=== PATIENT | female | born 2005 ===

== ENCOUNTER 2025-03-21 08:38 | Emergency (ER) | payer OTHER, SELFPAY ==
--- NOTE | 2025-03-21 09:09 | XR_ITS ---
EXAMINATION: US gall bladder ORDERING PROVIDER: CONNER Lezama HISTORY: ruq pain TECHNIQUE: Multiplanar still ultrasonography of the right upper quadrant was performed using grayscale imaging, supplemented by color and spectral Doppler as needed. COMPARISON: None. FINDINGS: Liver: Within normal limits. Gallbladder: Within normal limits. Biliary system: No biliary ductal dilatation. Common bile duct: 0.4 cm. Pancreas: Partially evaluated. No pancreatic head mass visualized. Vascular: Normal hepatopetal flow in the portal vein. Other: No ascites or mass. IMPRESSION: 1.No sonographic findings for cholelithiasis or acute cholecystitis.
[2025-03-21 09:16] VITALS: BP 137/96; PULSE 99; RESP 18; TEMP 36.7; O2SAT 97; BMI 41.8
--- NOTE | 2025-03-21 09:17 | EDNOTE_ITS ---
ED Abdominal Pain RME/HPI General Chief Complaint: Abdominal Pain Stated complaint: ABD PAIN, N/V, DIARRHEA Time seen by provider: 03/21/25 08:59 Arrival date/time: 03/21/25 08:38 19-year-old female with no known medical history presents to the emergency room with a chief complaint of epigastric 7 out of 10 abdominal pain that radiates to the right upper quadrant, nausea, vomiting, diarrhea x 3 days Source: patient Mode of arrival: ambulatory Limitations: no limitations Related Data Previous Rx's ?Medication ?Instructions ?Recorded omeprazole 40 mg capsule,delayed 40 mg PO QDAY #20 cap s 03/21/25 release ondansetron 4 mg disintegrating 4 mg PO Q8H PRN nausea and 03/21/25 tablet vomiting #14 tabs Allergies Allergy/AdvReac Type Severity Reaction Status Date / Time No Known Allergies Allergy Verified 03/21/25 08:41 Review of Systems Review of Systems Systems Reviewed: All systems reviewed, normal except as documented Constitutional Constitutional: Reports system reviewed and no additional complaints, except as documented, Denies fatigue, Denies fever(s), Denies headache(s) and Denies weakness Eyes Eyes: Reports system reviewed and no additional complaints, except as documented, Denies blurry vision and Denies change in vision ENT Ears, Nose, Mouth, and Throat: Reports system reviewed and no additional complaints, except as documented, Denies otalgia, Denies headache(s), Denies nasal congestion, Denies throat swelling and Denies vertigo Cardiovascular Cardiovascular: Reports system reviewed and no additional complaints, except as documented, Denies chest pain, Denies dyspnea and Denies dyspnea on exertion Respiratory Respiratory: Reports system reviewed and no additional complaints, except as documented, Denies chest congestion, Denies cough, Denies dyspnea, Denies dyspnea on exertion and Denies wheezing Gastrointestinal Gastrointestinal: Reports system reviewed and no additional complaints, except as documented, Reports abdominal pain, Reports cramping, Reports heartburn, Reports nausea and Reports vomiting Genitourinary Genitourinary: Reports system reviewed and no additional complaints, except as documented Musculoskeletal Musculoskeletal: Reports system reviewed and no additional complaints, except as documented and Denies back pain Integumentary/Breasts Skin/Breast: Reports system reviewed and no additional complaints, except as documented and Denies wounds Neurologic Neurologic: Reports system reviewed and no additional complaints, except as documented, Denies confusion, Denies headache(s), Denies lack of coordination, Denies vertigo and Denies weakness Psychiatric Psychiatric: Reports system reviewed and no additional complaints, except as documented, Denies anxiety, Denies confusion, Denies depression, Denies paranoia, Denies suicidal ideation and Denies tactile hallucinations Endocrine Endocrine: Reports system reviewed and no additional complaints, except as documented and Denies fatigue Hematologic/Lymphatic Hematologic/Lymphatic: Reports system reviewed and no additional complaints, except as documented and Denies lymphadenopathy Allergic/Immunologic Allergic/Immunologic: Reports system reviewed and no additional complaints, except as documented, Denies throat swelling, Denies urticaria and Denies wheezing Past Medical History Social History SMOKING STATUS: Never smoker ED Exam General Limitations: Present no limitations General appearance: Present alert and in no apparent distress Head Head exam: Present atraumatic Eye Eye exam: Present normal appearance, PERRL and EOMI ENT ENT exam: Present normal exam, normal oropharynx and mucous membranes moist Neck Neck exam: Present normal inspection, full ROM and trachea midline Chest Chest inspection: Present normal inspection and symmetric chest wall rise Respiratory Respiratory exam: Present normal lung sounds bilaterally Cardiovascular Cardiovascular exam: Present regular rate, normal rhythm and normal heart sounds Abdominal Exam Abdominal exam: Present soft, tenderness and normal bowel sounds Abdominal tenderness: Present RUQ, epigastrium and mild Extremities Exam Extremities exam: Present normal inspection and full ROM Back Exam Back exam: Present normal inspection and full ROM Neurological Exam Neurological exam: Present alert, oriented X3 and CN II-XII intact Psychiatric Psychiatric exam: Present normal affect and normal mood Skin Skin exam: Present warm, dry, intact and normal color Course Quality Measures none Orders Category Date Time Status US gall bladder Stat Exams 03/21/25 09:09 Completed CBC Stat Lab 03/21/25 09:19 Completed CMP [Comprehensive Metabolic Panel] Stat Lab 03/21/25 09:19 Completed HCG Qualitative,Urine Stat Lab 03/21/25 09:55 Results Lipase Stat Lab 03/21/25 09:19 Completed UA [Urinalysis] Stat Lab 03/21/25 09:55 Results Urine Culture Stat Lab 03/21/25 09:55 Received Acetaminophen Tab [Tylenol ES Tab] Med 03/21/25 09:09 Discontinued 1,000 mg PO X1 ONE Ondansetron Odt [Zofran Odt] Med 03/21/25 09:09 Discontinued 4 mg PO X1 ONE mg Hyd/Al Hyd/Anisa Susp [Maalox Susp] Med 03/21/25 09:09 Discontinued 30 ml PO X1 ONE Vital Signs Vital signs: Vital Signs Temperature 98.0 F 03/21/25 09:16 Pulse Rate 99 03/21/25 09:16 Respiratory Rate 18 03/21/25 09:16 Blood Pressure 137/96 H 03/21/25 09:16 Pulse Oximetry (%) 97 03/21/25 09:16 Oxygen Delivery Method Room Air 03/21/25 09:16 Abdominal Pain MDM MDM Narrative MDM Narrative:: 19-year-old female with no known medical history presents to the emergency room with a chief complaint of epigastric 7 out of 10 abdominal pain that radiates to the right upper quadrant, nausea, vomiting, diarrhea x 3 days Patient is hemodynamically stable and in no apparent distress Physical examination shows epigastric abdominal pain with palpation that radiates to the right upper quadrant. The patient has a negative Vu sign There is no right lower quadrant abdominal tenderness with no tenderness to McBurney's point CBC CMP were within normal limits there is no leukocytosis. Ultrasound of the gallbladder was within normal limits there is no cholelithiasis or cholecystitis Patient was discharged and educated to follow-up with primary care provider in the next 24 to 48 hours and return to the emergency room for any evidence of worsening signs or symptoms Patient data External records reviewed:: [facility] previous records Clinical information provided by:: patient Social determinants that could affect healthcare access:: none Patient has the following chronic illnesses:: No chronic illness How is presenting disease/condition affected by chronic disease/condition?: no chronic disease Evaluation data The following diagnostics were reviewed and interpreted by me:: lab results and radiology exam(s) Lab and/or radiology exams considered but not ordered:: Labs radiology exams considered and ordered Interpretation Summary: Ultrasound gallbladder-FINDINGS: Liver: Within normal limits. Gallbladder: Within normal limits. Biliary system: No biliary ductal dilatation. Common bile duct: 0.4 cm. Pancreas: Partially evaluated. No pancreatic head mass visualized. Vascular: Normal hepatopetal flow in the portal vein. Other: No ascites or mass. IMPRESSION: 1.No sonographic findings for cholelithiasis or acute cholecystitis. Medications / Prescriptions Medications or Prescriptions considered but not ordered:: Medication given Medication administrations:: Medication Administration History Discontinued Medications Acetaminophen (Acetaminophen 500 Mg Tablet) 1,000 mg PO X1 ONE Stop: 03/21/25 09:10 Last Admin: 03/21/25 09:34 Dose: 1,000 mg Documented By: SHERIE Al Hydrox/Mg Hydrox/Simethicone (Mg Hyd/Al Hyd/Anisa (Maalox Reg) Susp 30 Ml Udc) 30 ml PO X1 ONE Stop: 03/21/25 09:10 Last Admin: 03/21/25 09:35 Dose: 30 ml Documented By: SHERIE Ondansetron HCl (Ondansetron Odt 4 Mg Tabrap) 4 mg PO X1 ONE; Protocol Stop: 03/21/25 09:10 Last Admin: 03/21/25 09:35 Dose: 4 mg Documented By: SHERIE Medication given Consultations Consultation(s) initiated? (list below): No Diagnosis Differential diagnosis abdominal pain: abdominal pain, constipation, gastroenteritis and other (Cholelithiasis/cholecystitis/gastritis) Most likely diagnosis given after review of the tests above:: Gastritis Admission Indicated Admission indicated?: not indicated Admission Request Was there a request for admission?: No Disposition Plan Disposition Plan: Discharge Discharge Attestation Discharge Attestation: The patient and all family members were given an opportunity to ask questions an d understood the discharge instructions. Discharge instructions specifically effects, indications for sooner follow up or return to the emergency department, and the expected course of current diagnosis. Patient condition: Stable Discharge Plan Plan Patient Disposition: HOME (Self Care) Discharge Disposition comment: Stable Prescriptions/Referrals Prescriptions/Med Rec: New omeprazole 40 mg capsule,delayed release(DR/EC) 40 mg PO QDAY Qty: 20 0RF ondansetron 4 mg tablet,disintegrating 4 mg PO Q8H PRN (Reason: nausea and vomiting) Qty: 14 0RF Referrals: Denise Foy [Primary Care Provider] - In 1 week Problem List Clinical Impression: Gastritis Patient/Caregiver Discharge Instructions Education Materials: ED Gastritis (Adult) Additional Instructions: Please follow-up with your primary care provider in the next 24 to 48 hours Your ultrasound of your gallbladder was within normal limits Blood work was within normal limits For any evidence of worsening signs or symptoms return to emergency room immediately Print Language: [place] Stand Alone Forms: Kylie Award Info., Work/School Release, Patient Portal Info Letter
[2025-03-21 09:25] LABS: Basophils # (Auto) 0.1 Thou/mm3 (0.0-0.2); Basophils % (Auto) 1 % (0-2.5); Eosinophils # (Auto) 0.4 Thou/mm3 (0.0-0.5); Eosinophils % (Auto) 4 % (0-10); Hematocrit 41.6 % (36.0-46.0); Hemoglobin 13.6 g/dL (12.0-16.0); Immature Granulocytes Auto 0.05 Thou/mm3 (0.00-0.00); Lymphocytes # (Auto) 1.8 Thou/mm3 (1.0-4.8); Lymphocytes % (Auto) 21 % (10-50); Mean Corpuscular HGB Conc 32.7 g/dl (31.0-37.0); Mean Corpuscular Hemoglobin 29.8 pg (25.0-35.0); Mean Corpuscular Volume 91 fL (80-100); Monocytes # (Auto) 0.5 Thou/mm3 (0.0-0.8); Monocytes % (Auto) 6 % (0-12); Neutrophils # (Auto) 5.8 Thou/mm3 (1.8-7.7); Neutrophils % (Auto) 68 % (37-80); Nucleated Red Blood Cell # 0.00 Thou/mm3 (0.00-0.00); Nucleated Red Blood Cell % 0 /100 WBC (0); Platelet Count 299 Thou/mm3 (140-440); RDW Standard Deviation 43.1 fL (36.4-46.3); Red Blood Count 4.57 Miln/mm3 (4.00-5.20); White Blood Count 8.5 Thou/mm3 (3.6-11.0)
[2025-03-21] MEDS: ACETAMINOPHEN 500 MG TABLET 1000 MG PO (09:34)
[2025-03-21] MEDS: MG HYD/AL HYD/SIME (Maalox Reg) SUSP 30 ML UDC PO (09:35)
[2025-03-21] MEDS: ONDANSETRON ODT 4 MG TABRAP PO (09:35)
[2025-03-21 10:01] LABS: Alanine Aminotransferase 42 U/L (10-49); Albumin, Serum 5.0 gm/dL (3.5-5.0); Albumin/Globulin Ratio 1.8 (1.2-2.2); Alkaline Phosphatase 105 U/L (46-116); Anion Gap 9 (7-16); Aspartate Amino Transferase 28 U/L (0-34); BUN/Creatinine Ratio 14 Ratio (12-20); Bilirubin,Total 0.4 mg/dL (0.3-1.2); Blood Urea Nitrogen 10 mg/dL (9-23); Calcium 10.0 mg/dL (8.3-10.6); Calcium (Corrected) 10.0 mg/dL (8.5-10.1); Carbon Dioxide 26.9 mMol/L (20.0-31.0); Chloride 105 mMol/L (98-107); Creatinine (Component) 0.7 mg/dL (0.6-1.3); Estimated Creatinine Clearance 154.7 mL/min (>60); Globulin 2.8 gm/dL (2.3-3.5); Glucose 96 mg/dL (74-106); Lipase 38 U/L (12-53); Osmolality,Calculated 280 (275-295); Potassium 4.3 mMol/L (3.4-5.1); Sodium 141 mMol/L (136-145); Total Protein 7.8 gm/dL (5.7-8.2); eGFR > 60 See Note
[2025-03-21 10:10] LABS: Collection Type, Urine Clean Catch
[2025-03-21 10:14] LABS: HCG Qualitative,Urine Negative
[2025-03-21 10:38] LABS: Bacteria,Urine Rare; Bilirubin,Urine Negative (Negative); Blood,Urine Negative (Negative); Clarity,Urine Clear (Clear/Hazy); Color,Urine Lt-Yellow (Lt Yel-Yel); Glucose, Urine Negative (Negative); Ketones,Urine Negative (Negative); Leukocyte Esterase,Urine Negative (Negative); Nitrite,Urine Negative (Negative); PH,Urine 6.5 (5.0-7.0); Protein,Urine Negative (Neg - Trace); RBC,Urine 2 /hpf (0-3); Specific Gravity,Urine 1.026 (1.001-1.035); Squamous Epithelial Cell,Urine 1 /hpf (0-5); Urobilinogen,Urine Negative mg/dL (0.0-1.0); WBC,Urine 1 /hpf (0-5)
== END 2025-03-21 10:49 | disposition home or self-care (01) ==
PROVIDERS: Emergency Provider Nurse Practitioner Family; PCP Nurse Practitioner Family
DX: K29.70 Gastritis, unspecified, without bleeding (principal)
CPT/HCPCS: 36415; 76705; 80053; 81001; 81025; 83690; 85025; 87086; 99283; Q0162; A9270